=== PATIENT | female | born 1955 | race Hispanic/Latino ===

== ENCOUNTER 2017-10-15 16:03 | Outpatient (CLI) | payer BC | END 2017-10-15 16:04 | disposition home or self-care (01) | LOC: BICBD 16:03 | PROVIDERS: ATTEND Obstetrics & Gynecology | DX: Z13.820 Encounter for screening for osteoporosis (principal); N63.20 Unspecified lump in the left breast, unspecified quadrant; M85.80 Other specified disorders of bone density and structure, unspecified site | CPT/HCPCS: 77080; G0206-LT; G0279 ==

== ENCOUNTER 2021-12-29 13:13 | Outpatient (CLI) | payer BC | END 2021-12-29 13:14 | disposition home or self-care (01) | LOC: BICMAMMO 13:13 | PROVIDERS: ATTEND Physician Assistant | DX: Z13.820 Encounter for screening for osteoporosis (principal); R92.8 Other abnormal and inconclusive findings on diagnostic imaging of breast; M81.0 Age-related osteoporosis without current pathological fracture | CPT/HCPCS: 77066; 77080; G0279 ==